=== PATIENT | female | born 1965 ===

== ENCOUNTER 2023-11-10 12:45 | Inpatient (IN) | payer OTHER ==
[~2023-11-10] VITALS: Ht 162.6 cm; Wt 71.2 kg
[2023-11-10] MEDS ORDERED: VOLTAREN ARTHRI20 GM (15:03)
[2023-11-10] MEDS ORDERED: ANTIVERT25 M2 (15:04)
[2023-11-20] MEDS ORDERED: VANCOMYCIN HCL 1,000 MG VIAL ONE (07:48)
[2023-11-20] MEDS ORDERED: CEFAZOLIN SODIUM 1,000 MG VIAL ONE ×2 (07:48→16:42)
[2023-11-20] MEDS ORDERED: FLONASE16 GM (07:49)
[2023-11-20] MEDS ORDERED: ATORVASTATIN CA20 MG (07:50)
[2023-11-20] MEDS ORDERED: PERCOCET 5-3251 EACH PO (09:06)
[2023-11-20] MEDS ORDERED: COLACE100 MG PO (09:07)
[2023-11-20] MEDS ORDERED: MEDROLPACK PO (09:07)
[2023-11-20] MEDS ORDERED: 0.9 % SODIUM CHLORIDE 1,000 ML IV SCH (09:15)
[2023-11-20] MEDS ORDERED: ENALAPRILAT DIHYDRATE 1.25 MG/ML VIAL IV PRN (09:15)
[2023-11-20] MEDS ORDERED: PROMETHAZINE HCL 50 MG/ML AMPUL IM PRN (09:15)
[2023-11-20] MEDS ORDERED: METHYLPREDNISOLONE SOD SUCC 125 MG VIAL ONE ×2 (09:38→16:43)
[2023-11-20] MEDS ORDERED: METHYLPREDNISOLONE ACETATE 80 MG/ML VIAL ONE (09:39)
[2023-11-20] MEDS ORDERED: HEMOSTATIC MATRIX WITH THROMBIN KIT TOP ONE ×2 (09:39→11:00)
[2023-11-20] MEDS ORDERED: VANCOMYCIN HCL 1,000 MG VIAL IV ONE (11:00)
[2023-11-20] MEDS ORDERED: METHYLPREDNISOLONE SOD SUCC 125 MG VIAL IV ONE ×2 (11:00)
[2023-11-20] MEDS ORDERED: CEFAZOLIN SODIUM 1,000 MG VIAL IV ONE (11:00)
[2023-11-20] MEDS ORDERED: METHYLPREDNISOLONE ACETATE 80 MG/ML VIAL IJ ONE (11:15)
[2023-11-20] MEDS ORDERED: DOCUSATE SODIUM 100MG CAP PO SCH (13:00)
[2023-11-20] MEDS ORDERED: MORPHINE SULFATE 4 MG/ML VIAL IV SCH (13:00)
[2023-11-20] MEDS ORDERED: FAMOTIDINE/PF 20 MG/2 ML VIAL ONE (16:42)
[2023-11-20] MEDS ORDERED: METHYLPREDNISOLONE SOD SUCC 125 MG VIAL IV SCH (17:00)
[2023-11-20] MEDS ORDERED: FAMOtidine 20 MG TABLET PO SCH (17:00)
[2023-11-20] MEDS ORDERED: CEFAZOLIN SODIUM 1,000 MG in 0.9 % SODIUM CHLORIDE 50 ML IV SCH (17:00)
[2023-11-20] MEDS ORDERED: VANCOMYCIN HCL 1,000 MG VIAL IV SCH (21:00)
[2023-11-21] MEDS ORDERED: SODIUM CHLORIDE 0.45 % 1,000 ML IV SCH
[2023-11-21] MEDS ORDERED: OxyCODONE HCL/APAP UD (PERCOCET) PO PRN (06:01)
[2023-11-21] MEDS ORDERED: TAMSULOSIN HCL 0.4 MG CAP PO SCH (09:00)
== END 2023-11-21 13:34 | disposition home or self-care (01) | DRG 473 ==
LOC: EDUNIT# 12:45 → PED 11-20 06:00 → O/R 11-20 06:00 → SURH 11-20 11:15 → PED 11-20 11:58 → SURH 11-20 12:45 → PED 11-21 13:34
PROVIDERS: ADMIT Orthopaedic Surgery Orthopaedic Surgery of the Spine; ATTEND Orthopaedic Surgery Orthopaedic Surgery of the Spine
PROC: 0RT30ZZ Resection of Cervical Vertebral Disc, Open Approach (ICD-10-PCS; 2023-11-20)
PROC: 07DS0ZZ Extraction of Vertebral Bone Marrow, Open Approach (ICD-10-PCS; 2023-11-20)
PROC: 4A1104G Monitoring of Peripheral Nervous Electrical Activity, Intraoperative, Open Approach (ICD-10-PCS; 2023-11-20)
PROC: 0RG20A0 Fusion of 2 or more Cervical Vertebral Joints with Interbody Fusion Device, Anterior Approach, Anterior Column, Open Approach (ICD-10-PCS; principal; 2023-11-20 11:15)
DX: M50.321 Other cervical disc degeneration at C4-C5 level (principal); M50.322 Other cervical disc degeneration at C5-C6 level; M54.12 Radiculopathy, cervical region

== ENCOUNTER 2023-11-10 13:29 | Outpatient (CLI) | payer OTHER ==
[2023-11-10 14:09] LABS: HEMATOCRIT 37.4 % (36.0-45.00); HEMOGLOBIN 12.9 g/dL (12.0-15.00); MEAN CELL VOLUME 89.6 fL (80.00-100.00); MEAN CORPUSCULAR HEMOGLOBIN 30.8 pg (27.00-32.0); MEAN CORPUSCULAR HGB CONC 34.4 g/dl (32.0-36.0); PLATELET COUNT 337 K/uL (150-450); RED BLOOD COUNT 4.18 M/uL (4.00-6.00); RED CELL DISTRIBUTION WIDTH 13.9 % (11.5-14.5)
[2023-11-10 14:11] LABS: PH,URINE 5.5 (5.0-8.0); URINE APPEARANCE Cloudy; URINE BILIRRUBIN Negative (NEGATIVE); URINE BLOOD Trace; URINE COLOR Yellow; URINE GLUCOSE Negative (NEGATIVE); URINE LEUKOCYTE Negative; URINE NITRATE Negative; URINE PROTEIN Negative (NEGATIVE); URINE UROBILINOGEN 0.2 E.U./dl
[2023-11-10 14:12] LABS: URINE EPITHELIAL CELLS 7.4 uL (0.0-38.8); URINE RBC 19.2 uL (0.0-20.8); URINE WBC 3.5 uL (0.0-23.2)
[2023-11-10 14:30] LABS: URINE CRYSTALS MANY /HPF
[2023-11-10 14:39] LABS: INR 0.99; PARTIAL THROMBOPLASTIN TIME 29.9 SECONDS (22.0-34.0); PROTHROMBIN TIME 10.4 SECONDS (9.0-11.5)
[2023-11-10 14:44] LABS: CALCIUM 9.5 mg/dL (8.5-10.1); CREATININE SERUM 0.69 mg/dL (0.55-1.02); GFR 87.38; T4 TOTAL 7.76 UG/DL (4.8-13.9); TSH 0.675 uIU/mL (0.358-3.74)
[2023-11-10] MEDS ORDERED: VOLTAREN ARTHRI20 GM (15:03)
[2023-11-10] MEDS ORDERED: ANTIVERT25 M2 (15:04)
== END 2023-11-10 14:53 | disposition home or self-care (01) ==
LOC: LAB 13:29
PROVIDERS: ATTEND Orthopaedic Surgery Orthopaedic Surgery of the Spine
DX: D68.9 Coagulation defect, unspecified (principal); D64.9 Anemia, unspecified; E03.9 Hypothyroidism, unspecified; R07.9 Chest pain, unspecified